=== PATIENT | male | born 1995 | race African-American/Black ===

== ENCOUNTER 2019-06-12 13:51 | Observation (INO) ==
[2019-06-12] MEDS ORDERED: DUONEB (A & A) ONE (14:07)
[2019-06-12] MEDS ORDERED: PULMICORT INH ONE (14:07)
[2019-06-12] MEDS ORDERED: ALBUTEROL NEB INH ONE (14:07)
[2019-06-12] MEDS ORDERED: ALBUTEROL NEB ONE (14:07)
[2019-06-12] MEDS ORDERED: DUONEB (A & A) INH ONE (14:07)
[2019-06-12] MEDS ORDERED: SOLU-MEDROL IV ONE (14:08)
[2019-06-12] MEDS ORDERED: SOLU-MEDROL ONE (14:35)
--- NOTE | 2019-06-12 15:01 | Diag Imaging Result Doc PS360 ---
EXAM: CHEST-PORTABLE HISTORY: SOB TECHNIQUE: Chest single view COMPARISON: 06/08/2019 FINDINGS: The lungs are well expanded. The heart is not enlarged. The vessels are not distended. There are no infiltrates. No effusion identified. IMPRESSION: Negative exam. Electronically signed by Sabas Thakkar 06/12/2019 2:59 PM
[2019-06-12] MEDS ORDERED: ZOFRAN ODT PO PRN (15:36)
[2019-06-12] MEDS ORDERED: DESYREL PO PRN (17:59)
[2019-06-12] MEDS ORDERED: ROBITUSSIN-DM PO PRN (19:05)
[2019-06-12] MEDS ORDERED: SODIUM CHLORIDE 0.9% INJ SCH (19:15)
[2019-06-12] MEDS: DUONEB (A & A) INH SCH ×2 (19:47→23:52)
[2019-06-12] MEDS ORDERED: SOLU-MEDROL IV SCH (21:00)
[2019-06-12] MEDS: ABILIFY PO SCH (21:08)
[2019-06-12] MEDS: LEVAQUIN 500 MG/D5W 500 MG/100 ML IVPB IV SCH (21:08)
[2019-06-12] MEDS: NEXIUM IV SCH (21:09)
[2019-06-12] MEDS: LOVENOX SUBQ SCH (21:09)
[2019-06-12] MEDS: XANAX PO SCH (21:20)
--- NOTE | 2019-06-12 22:05 | HISTORY AND PHYSICAL ---
CHIEF COMPLAINT: Shortness of breath. PRESENT ILLNESS: This is the first recent [facility] admission for this 23-year-old black man with asthma exacerbation, who first presented to [facility] and was given nebulizer treatment and intravenous steroids, and transferred to [facility], due to Dr. Arceo being his physician. He had been to [place] [facility] 3 days before and had been given steroids and albuterol inhaler. He used both today, but had an episode of "closing of his throat", causing him to be short of breath. On presentation to [place], he had moderate distress until receiving a nebulizer treatment, which helped. Chest x-ray showed no infiltrate. There have been no hospitalizations for his asthma. He is admitted for treatment with nebulizer, intravenous steroids, and oxygen if needed. PAST MEDICAL HISTORY: Surgeries include tonsillectomy, removal of several cysts, and nasal cauterization. CURRENT MEDICATIONS: 1. Albuterol inhaler 1 or 2 puffs q.4 hours p.r.n. shortness of breath. 2. Steroid Dosepak. 3. Desyrel 300 mg at bedtime. 4. Vraylar 1.5 mg daily. 5. Alprazolam 2 mg t.i.d. 6. Abilify 5 mg at bedtime. ALLERGIES: Tetracyclines and Zoloft. FAMILY HISTORY: Unremarkable. PHYSICAL EXAMINATION: VITAL SIGNS: Temperature 98.4 degrees, heart rate 148, respirations 20, blood pressure 107/89, O2 saturation on room air 99%. A couple of hours ago, his O2 saturation was 98% on 2 liters nasal oxygen. HEENT: Pupils equal, round, and reactive to light. Pharynx benign. NECK: Supple with mild tenderness in the left submandibular area, but no palpable enlarged nodes. HEART: Regular in rate and rhythm with rapid rate. LUNGS: Raspy sounds, but no current wheeze. He is tachypneic, and somewhat short of breath with answering questions. ABDOMEN: Grossly obese with no mass. EXTREMITIES: 2+ edema of his left ankle, 1+ on the right, but enlarged ankles related to his obesity and some venous insufficiency. NEUROLOGICAL: Grossly intact. IMPRESSION: 1. Asthma exacerbation. 2. Anxiety disorder. 3. Possible bipolar disorder. PLAN: Admit for continued treatment with intravenous steroids and nebulizer with albuterol. cc: MD Demetrius Cameron MD
[2019-06-12] MEDS: SOLU-MEDROL IV SCH (23:56)
[2019-06-12] MEDS: ZOSYN 3.375 GM in NS 50 ML IV SCH (23:56)
[2019-06-13] MEDS: DUONEB (A & A) INH SCH ×6 (03:21→23:20)
[2019-06-13] MEDS: ZOSYN 3.375 GM in NS 50 ML IV SCH ×4 (05:25→23:39)
[2019-06-13 05:28] LABS: ALLEN TEST YES; BE -1.3 mmoll (-3.0-3.0); BLOOD TYPE ARTERIAL; HCO3-(ACT) 23.9 mmoll (20.0-26.0); METHB 1.3 % (0.0-1.5); O2(CT) 19.9 mL/dL (15.0-23.0); O2HB 95.8 % (95.0-99.0); PCO2(98.6) 43 mmHg (35-45); PO2(98.6) 97 mmHg (60-100); SAMPLE BLOOD; SAO2 98.9 % (95.0-100.0); THB 14.7 g/dL (11.5-17.4); pH(98.6) 7.36 (7.35-7.45)
[2019-06-13 05:29] LABS: MODALITY ROOM AIR
--- NOTE | 2019-06-13 06:12 | HISTORY AND PHYSICAL ---
CHIEF COMPLAINT: Shortness of breath, cough, and wheezing. HISTORY OF PRESENT ILLNESS: He is a 23-year-old male whose mother works in the hospital. He was seen in the [place] [facility] with shortness of breath, cough, and wheezing. He has childhood asthma. He uses inhalers as needed. He never had significant attacks until a few weeks ago. He was seen 4 days ago, and unable to improve. He was very tight and was seen in the emergency room. He has been transferred to [facility] for acute asthma exacerbation. He denies any chest pain. PAST MEDICAL HISTORY: Chronic anxiety, history of asthma, metabolic syndrome, hypertension, depression, and morbid obesity. PAST SURGICAL HISTORY: Tonsillectomy, cyst removed from the buttocks, and cauterization of the nose for epistaxis in the past. ALLERGIES: Not known. MEDICATIONS: He is on Xanax 2 mg p.o. t.i.d. and trazodone 300 at bedtime. He was given Abilify 5 mg at bedtime, Medrol Dosepak, and Vraylar 1.5 mg daily. Ventolin HFA. Prozac 10 mg daily. ALLERGIES: Reported as Zoloft and tetracycline. SOCIAL HISTORY: He lives in [place]. History of smoking, questionable marijuana. No alcohol. He is . He is waiting for gastric sleeve surgery. FAMILY HISTORY: Father of heart attack at 40. Mom is in good health. REVIEW OF SYSTEMS: HEENT: No headache. No vision problems. No earache. No sore throat. Neck: No goiter. No pain. Cardiopulmonary: No chest pain, shortness of breath, cough, or wheezing. GI: No nausea, vomiting, or abdominal pain. : No history of hesitancy, frequency, or dysuria, and no swelling of legs. Skin: No skin rashes. Extremities: No joint pain. Neurologic: No focal symptoms or weakness. PHYSICAL EXAMINATION: He is tachycardic. Temperature is 98 degrees, blood pressure is 144/79. He is 99% on room air. GENERAL: He has morbid obesity. BMI 68. HEENT: Atraumatic, normocephalic. Pupils equal, react to light. TMs are normal. Nose and throat within normal limits. NECK: Supple. No lymphadenopathy. No goiter. CHEST: Bilateral air entry. No wheezing. HEART: Sounds are very distant. ABDOMEN: Belly is soft. Obese. Nontender. Good bowel sounds. EXTREMITIES: No peripheral edema or cyanosis. No obvious neurological deficits. INVESTIGATIONS: On 06/08, white cell count 10, hematocrit 43, and platelets 255,000. Sodium 140, potassium 4.1, chloride 105, BUN 10, creatinine 1.0, and calcium 8.7, AST and ALT were high. Cardiac enzymes were negative. ProBNP and troponin were normal. Vitamin B12 on the low side. Thyroid function tests were normal. Chest x-ray negative exam. ASSESSMENT AND PLAN: A 23-year-old male admitted to the hospital with acute asthma exacerbation with failure of outpatient treatment. Plan of care: 1. We will check the blood gas, oxygen as needed, and bronchodilators. We will use the IV steroids and antibiotics with combination of Levaquin and Zosyn. 2. Morbid obesity. Waiting for gastric sleeve. 3. B12 deficiency on replacement. 4. Deep vein thrombosis and gastrointestinal prophylaxis with Lovenox and PPI. 5. History of chronic depression and anxiety under the care of Dr. Lundy, using Prozac 10 mg daily, Abilify 5 mg daily, Xanax 2 mg t.i.d. and Vryvlar 1.5 mg daily. 6. Discussed the plan of care with family, and will follow up on the pending labs. cc: Demetrius Arceo MD [facility]
[2019-06-13 06:31] LABS: HEMOGLOBIN A1C 5.2 % (4.8-6.0)
[2019-06-13 06:39] LABS: BASO# 0.01 X1000 (0.0-0.2); BASO% 0.1 % (0.0-0.8); HEMATOCRIT 41.5 % (42.0-52.0); HEMOGLOBIN 14.1 g/dL (14.0-18.0); IMM GRAN# 0.08 X1000 (0.0-0.04); IMM GRAN% 0.5 % (0.0-0.5); LYMPH# 1.05 X1000 (1.2-3.4); LYMPH% 5.9 % (20.5-51.1); MCH 33.6 PG (27-31); MCV 98.8 FL (81-99); MONO# 0.47 X1000 (0.11-0.59); MONO% 2.7 % (1.7-9.3); MPV 10.6 FL (7.4-10.4); NEUT# 16.09 X1000 (1.4-6.5); NEUT% 90.8 % (42.2-75.2); PLT 258 X1000 (130-400); RDW 14.4 % (11.5-14.5)
[2019-06-13 06:50] LABS: AGAP 15; ALB/GLOB RATIO 1.1; ALBUMIN 4.1 g/dL (3.5-5.0); ALKALINE PHOSPHATASE 49 U/L (32-122); BUN 11 mg/dL (8-22); CALCIUM 8.8 mg/dL (8.8-10.2); CHLORIDE 103 mmol/L (98-107); COSMO 286; CREATININE 1.1 mg/dL (0.7-1.2); ESTIMATED GFR > 60; GLUCOSE 195 mg/dL (70-104); GOT 18 U/L (10-34); GPT 37 U/L (10-44); POTASSIUM 4.4 mmol/L (3.5-5.1); SODIUM 141 mmol/L (136-145); TCO2 23 mmol/L (25-35); TOTAL PROTEIN 7.7 g/dL (6.3-8.3)
[2019-06-13 07:15] LABS: LYMPHS 6 % (21-51); SEGS 92 % (42-75)
[2019-06-13] MEDS ORDERED: ZOFRAN ODT PO PRN (08:37)
[2019-06-13] MEDS: CYANOCOBALAMIN IM SCH (08:40)
[2019-06-13] MEDS: XANAX PO SCH ×3 (08:40→22:21)
[2019-06-13] MEDS: SOLU-MEDROL IV SCH ×3 (08:40→23:45)
[2019-06-13] MEDS ORDERED: VRAYLAR PO SCH (09:00)
--- NOTE | 2019-06-13 20:59 | PROGRESS NOTE ---
DATE: 06/13/2019 SUBJECTIVE: The patient complains of sore throat, left ear pain, decreased wheezing, shortness of breath. Denies of smoking or drug abuse. OBJECTIVE: Temperature is 98 degrees. Tachycardic. Vitals are stable. Morbidly obese. Suboptimal exam but no wheezing noted. INVESTIGATIONS: Reported white cell count 17, hematocrit 41, platelets 258,000. ABG: pO2 97 on room air. SMA 7 and LFTs were normal. Chest x-ray was stable. ASSESSMENT AND PLAN: 1. Asthmatic bronchitis and getting better. Continue present IV antibiotics, IV steroids. 2. Left ear pain. We will review the otoscope exam. 3. Major depression. Continue present treatment as per Dr. Ludny. 4. Morbid obesity. Waiting for gastric sleeve surgery. 5. B12 deficiency on replacement therapy. 6. DVT and GI prophylaxis as per order sheet. LEVEL OF DOCUMENTATION: 25 minutes. cc: Demetrius Arceo MD
[2019-06-13] MEDS: LEVAQUIN 500 MG/D5W 500 MG/100 ML IVPB IV SCH (22:19)
[2019-06-13] MEDS: LOVENOX SUBQ SCH (22:19)
[2019-06-13] MEDS: ABILIFY PO SCH (22:19)
[2019-06-13] MEDS: NEXIUM IV SCH (22:20)
[2019-06-14] MEDS: DUONEB (A & A) INH SCH ×3 (03:24→10:54)
[2019-06-14] MEDS: ZOSYN 3.375 GM in NS 50 ML IV SCH ×2 (05:08→06:48)
[2019-06-14] MEDS: XANAX PO SCH (08:55)
[2019-06-14] MEDS: CYANOCOBALAMIN IM SCH (08:56)
[2019-06-14] MEDS: SOLU-MEDROL IV SCH (08:56)
[2019-06-14 10:41] VITALS: BP 148/91
--- NOTE | 2019-06-15 05:26 | DISCHARGE SUMMARY ---
ADMISSION DATE: 06/12/2019 DISCHARGE DATE: 06/14/2019 DISCHARGING DIAGNOSES: Acute asthmatic bronchitis. SECONDARY DIAGNOSES: 1. Chronic depression with anxiety. 2. Metabolic syndrome. 3. Hypertension. 4. Morbid obesity. 5. 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 BRIEF HISTORY: Please see the H and P that was done on 06/12/2019. In brief, he is a 23-year-old male who was admitted to the hospital with childhood asthma came in with shortness of breath, cough, and wheezing. He was seen few days before treating as an outpatient with Ventolin. HOSPITAL COURSE: Objective findings are suboptimal. The patient was given IV steroids, IV antibiotics, and bronchodilators. The patient got better. Complains of deafness in the left ear due to impacted cerumen. Rest of the hospital course was uneventful. He was given Lovenox for DVT prophylaxis and Nexium for GI prophylaxis. He is going for a gastric sleeve by Dr. Hill in the near future for a BMI of 65. LABORATORY: CBC: White cell count 17, hematocrit 41.5, and platelet count 258,000. ABG: A pH is 7.36, pCO2 43, PO2 97 on room air. SMA 7 is normal. Glucose 195. A1c 5.2. DISCHARGE INSTRUCTIONS: 1. Future gastric sleeve. 2. Xanax 2 mg p.o. t.i.d. 3. Trazodone 300 at bedtime. 4. Abilify 5 mg daily. 5. Cariprazine 1.5 mg daily, 6. Augmentin 875 p.o. b.i.d. 7. Ventolin 1 puff q.6h as needed and nebulizers 1 tablet albuterol q.6h as needed. 8. We will assess his asthma status if continues to be a problem. 9. Follow up in my office in 2 weeks. 10. Please send a copy to Dr. Lundy for underlying depression and anxiety problems and Dr. Teena Hill. cc: MD Chris Vela MD Bryant K. Mahaffey, MD
== END 2019-06-14 12:27 | disposition home or self-care (01) | DRG 202 ==
LOC: P.ED 13:51 → INTOOBSV 13:52 → 4N 13:52
PROVIDERS: ADMIT Internal Medicine; ATTEND Internal Medicine
CPT/HCPCS: 71010; 71045; 80053; 82805; 83036; 85025; 94640; 94761; 94799; A9270; J1650; J1956; J2543; J2930; J3420